=== PATIENT | male | born 1995 | race Caucasian/White ===

== ENCOUNTER → 2017-10-13 | Outpatient (CLI) | payer BC ==
--- NOTE | 2017-10-13 21:05 | Diagnostic Imaging Report ---
EXAM: Supine view of the abdomen. INDICATION: History of right distal ureteric stone reportedly seen in [facility], presumably by CT scan. COMPARISON: No prior studies are available for comparison at our institution. FINDINGS: There is a calcification measuring 3 mm seen in the lower pelvis to the right of the midline. This seems to be slightly medial and lower than expected for the UVJ location. No other calcifications are seen. Bowel gas is unremarkable. IMPRESSION: Indeterminate 3 mm calcification projecting to the right of the midline in the lower right pelvis, which could potentially correlate with a bladder stone rather than a right UVJ stone. Correlate with outside imaging findings. Dictated by: Dictated on workstation # [id number]
== END ==
LOC: RAD 11:55
PROVIDERS: ATTEND Urology
DX: N20.1 Calculus of ureter (principal)
CPT/HCPCS: 74000

== ENCOUNTER → 2017-10-14 | Outpatient (CLI) | payer BC | LOC: PREOP 05:40 | PROVIDERS: ATTEND Urology | DX: Z01.818 Encounter for other preprocedural examination (principal); N20.1 Calculus of ureter ==

== ENCOUNTER 2017-10-15 06:09 | Day surgery (SDC) | payer BC ==
[~2017-10-15] VITALS: Ht 182.9 cm; Wt 70.3 kg
[2017-10-15] MEDS ORDERED: FAMOTIDINE 20MG/2ML IV (PEPCID) IV ONE (07:00)
--- NOTE | 2017-10-15 07:05 | Diagnostic Imaging Report ---
INDICATION: Followup of possible distal calculus in the pelvis. Comparison with 10/13/2017. FINDINGS: The small calculus noted just right of midline is again noted measuring 3 mm. This could represent distal ureteral stones though due to the position I feel this is more likely phlebolith. CT scan would be helpful. Clinical correlation for right renal colic. IMPRESSION: Questionable 3 mm calculus versus phlebolith in the pelvis just right of midline is again noted. Dictated by: Dictated on workstation # [id number]
[2017-10-15] MEDS ORDERED: SEVOFLURANE (ULTANE) 15 ML INHAL SOLN ONE (07:09)
[2017-10-15] MEDS ORDERED: ROCURONIUM 50 MG/5 ML (ZEMURON) VIAL IV ONE (07:09)
[2017-10-15] MEDS ORDERED: MIDAZOLAM 2 MG/2 ML (VERSED) VIAL ONE (07:09)
[2017-10-15] MEDS ORDERED: proPOfol 200 MG/20 ML (DIPRIVAN) VIAL IV ONE (07:09)
[2017-10-15] MEDS ORDERED: DEXAMETHASONE 10 MG/ML (DECADRON) 1 ML VIAL ONE (07:09)
[2017-10-15] MEDS ORDERED: fentaNYL INJECTION 100 MCG/2 ML AMP ONE (07:09)
[2017-10-15] MEDS ORDERED: LIDOCAINE PF 2% 5 ML (XYLOCAINE) VIAL ONE (07:09)
[2017-10-15] MEDS ORDERED: ONDANSETRON 4 MG/2 ML (SDV) Z0FRAN ONE (07:09)
--- NOTE | 2017-10-15 07:12 | Progress Note-Pre Operative ---
Pre-Operative Progress Note H&P Reviewed The H&P was reviewed, patient examined and no changes noted. Date Seen by Provider: Oct 15, 2017 Time Seen by Provider: 07:11 Date H&P Reviewed: Oct 15, 2017 Time H&P Reviewed: 07:11 Pre-Operative Diagnosis: RT DISTAL URETERAL STONE MAGGIE PEARCE MD Oct 15, 2017 7:12 am
[2017-10-15 07:14] VITALS: BP 116/68
[2017-10-15] MEDS ORDERED: cefTRIAXone 1 GM (ROCEPHIN) VIAL ONE (07:32)
[2017-10-15] MEDS ORDERED: NS (IVPB) 50 ML ONE (07:32)
--- NOTE | 2017-10-15 07:36 | Discharge Inst-Urology ---
Discharge Inst-Urology Discharge Medications New, Converted, or Re-newed RX: RX on Chart Patient Instructions/Follow Up Plan Please make appointment to been seen in office in 2 weeks. Increase oral fluids for 48 hours and then as needed. Diet and Activity as tolerated. If questions or concerns contact your physician Or seek help at emergency department. MAGGIE PEARCE MD Oct 15, 2017 7:36 am
--- NOTE | 2017-10-15 07:36 | Progress Note-Post Operative ---
Post-Operative Progess Note Surgeon (s)/Anchorer (s) Surgeon MAGGIE PEARCE MD Anchorer: N/A Pre-Operative Diagnosis RT DISTAL URETERAL STONE Post-Operative Diagnosis SAME Procedure & Operative Findings Date of Procedure 10/15/17 Procedure Performed/Findings CYSTOSCOPY, RT URETEROSCOPY WITH STONE LITHOTRIPSY Anesthesia Type GENERAL Estimated Blood Loss Estimated blood loss (mL): N/A Specimens/Packing Specimens Removed N/A Packing: N/A MAGGIE PEARCE MD Oct 15, 2017 7:36 am
[2017-10-15] MEDS ORDERED: CATHETER FLUSH 10 ML SYR IV PRN (07:45)
[2017-10-15] MEDS ORDERED: cefTRIAXone 1 GM/NS 50 ML IVPB IV ONE ×2 (07:45)
[2017-10-15] MEDS ORDERED: GLYCOPYRROLATE 0.2 MG/ML (ROBINUL) 2 ML VIAL ONE (08:33)
[2017-10-15] MEDS ORDERED: NEOSTIGMINE (BLOXIVERZ ) 1 MG/1ML 10 ML VIAL ONE (08:33)
[2017-10-15] MEDS ORDERED: morphine INJ 10 MG/ML 1ML (SYR OR VIAL) IVP PRN (08:45)
[2017-10-15] MEDS ORDERED: ONDANSETRON 4 MG/2 ML (SDV) Z0FRAN IVP PRN (08:45)
--- NOTE | 2017-10-15 13:31 | Diagnostic Imaging Report ---
EXAMINATION: Supine abdomen at 1031 hours. INDICATION: Post ESWL. FINDINGS: The abdomen exam performed earlier today at 10:54 AM suggested that there was a small 3 mm calculus near the ureterovesical junction on the right. That calcification is not clearly evident on this study. This portion of the pelvis, however, is partially obscured by bowel gas. The appearance of the abdomen has not changed significantly otherwise. IMPRESSION: The small calcification low in the pelvis just to the right of the midline seen previously is not well-visualized on this exam. There is no other pathological calcification evident. Dictated by: Dictated on workstation # [id number]
--- NOTE | 2017-10-15 15:51 | OPERATIVE REPORT ---
DATE OF SERVICE: 10/15/2017 PREOPERATIVE DIAGNOSIS: Right distal ureteral stone. POSTOPERATIVE DIAGNOSIS: Right distal ureteral stone. OPERATIONS PERFORMED: 1. Cystoscopy. 2. Right ureteroscopy with stone lithotripsy. SURGEON: José Miguel Pearce MD ANESTHESIA: General. COMPLICATIONS: None. DESCRIPTION OF PROCEDURE: Under satisfactory general anesthesia, the patient in lithotomy position, genitalia prepped and draped in usual sterile fashion. A 33-Yakut cystoscope was introduced under vision. The anterior urethra was normal. The prostate was small and nonobstructing. Bladder neck open. The bladder was normal except for the right ureteral orifice intramural portions so that I could see the stone protruding slightly through the orifice. I went ahead and removed the cystoscope and introduced the ureteroscope. I was able to disengage the stone, push it into the intramural portion to be able to completely fragment it with the lithoclast. I removed the ureteroscope reinserted the cystoscope to empty the bladder. The patient tolerated procedure and anesthesia well, was sent to recovery room in stable condition. PLAN: See him back in 2 weeks and work him up for prevention of stones. Job ID: [id number] DocumentID: [id number] Dictated Date: 10/15/2017 08:51:37 Inner Diameter Grinder Tool Date: 10/15/2017 09:40:24 Dictated By: JOSÉ MIGUEL PEARCE MD
== END 2017-10-15 11:15 | disposition home or self-care (01) ==
LOC: SDC 06:09
PROVIDERS: ATTEND Urology
DX: N20.1 Calculus of ureter (principal); J40 Bronchitis, not specified as acute or chronic; F17.210 Nicotine dependence, cigarettes, uncomplicated
CPT/HCPCS: 74000; 87081